=== PATIENT | female | born 1940 | race Caucasian/White ===

== ENCOUNTER 2023-11-22 06:07 | Outpatient (RCR) | payer MEDICARE, OTHER, SELFPAY | END 2023-11-22 23:59 | disposition home or self-care (01) | LOC: ROT 06:07 | PROVIDERS: ATTENDING PHYSICIAN Orthopaedic Surgery; FAMILY PHYSICIAN Family Medicine | DX: M79.642 Pain in left hand (principal); Z73.6 Limitation of activities due to disability | CPT/HCPCS: 97166; 97535 ==

== ENCOUNTER 2023-12-07 11:16 | Outpatient (RCR) | payer MEDICARE, OTHER, SELFPAY | END 2023-12-07 14:51 | disposition home or self-care (01) | LOC: ROT 11:16 | PROVIDERS: ATTENDING PHYSICIAN Orthopaedic Surgery; FAMILY PHYSICIAN Family Medicine | DX: M79.642 Pain in left hand (principal); Z73.6 Limitation of activities due to disability | CPT/HCPCS: 97018; 97110; 97140 ==

== ENCOUNTER → 2023-12-21 15:02 | Outpatient (REF) | payer MEDICARE, OTHER, SELFPAY | LOC: EMG 15:02 | PROVIDERS: ATTENDING PHYSICIAN Orthopaedic Surgery Hand Surgery; FAMILY PHYSICIAN Family Medicine | DX: M79.642 Pain in left hand (principal); G54.0 Brachial plexus disorders | CPT/HCPCS: 95886; 95911 ==

== ENCOUNTER 2024-08-22 15:42 | Emergency (ER) | payer MEDICARE, OTHER, SELFPAY ==
--- NOTE | 2024-08-22 16:18 | DOWNTIME ---
There was a [employer] Downtime on 08/22/2024 from 1230 to 08/22/2024 at 1550. Downtime documentation of patient's care, including medication administrations, has been reconciled in the electronic record per guidelines. Refer to the
patient's paper chart under the miscellaneous tab to see printed paper medication records and downtime forms.
--- NOTE | 2024-08-22 16:37 | ED.GENMED ---
History of Present Illness
General
Chief Complaint: Fall
Source: patient
Time Seen by Provider: 08/22/24 15:58
History of Present Illness
History of Present Illness:
83-year-old female with past medical history of hyperlipidemia presenting to the ER for evaluation after an accidental trip and fall 2 days ago where patient states she was walking in the bathroom and stumbled over a floor rug striking the tile on
the wall. Patient had a contusion to the right forehead and over the last 2 days the bruising seems to have started to go down towards the right orbit which concerned the patient and family. Patient states she feels fine otherwise, no LOC, no
vomiting, no visual changes, denies any use of anticoagulants.
Past History
Past History
ED Past Medical History: GERD, HTN, Hypercholesterolemia and Hypothyroidism
ED Past Surgical History: Gynecological, Orthopedic and Tonsilectomy
Social History
Tobacco: Non-smoker
Alcohol: None
Drug: None
Personal:
Living: with family
Review of Systems
Review of Systems
All Other Systems: ROS reviewed and negative except as documented in HPI and ROS
Phy Exam
Physical Exam
Physical Exam:
GENERAL: Alert , in no apparent distress
EYE: conjunctiva clear, pupils 4 mm bilateral, EOMI
Head: Right frontotemporal bone ecchymosis extending into the right inferior orbit
NECK: Supple, no nystagmus
ENT: mmm.
LUNGS: no acute respiratory distress
NEUROLOGICAL: Alert and oriented, ambulated with steady gait
SKIN: Warm and dry, skin intact.
MUSCULOSKELETAL: well perfused.
PSYCH: Normal and appropriate interaction.
Scores
Heart Failure Risk
Heart Failure Risk Score: Not Applicable
Heart Score for Chest Pain Patients
STEMI patient?: Not applicable
Withdrawal Assessment of Alcohol
Withdrawal Assessment Completed?: Not applicable
Course
Orders/Labs/Results
Orders:
Orders
08/22/[address] Facial Bones W/o Iv Contras Routine
CT Head W/o Iv Contrast Routine
Reason For Exam: FALL
MDM/Problems Addressed
Differential Diagnosis Includes:
Contusion, concussion, intracranial bleeding, facial fracture
MDM/Problems Addressed:
83-year-old female presenting to the ER for evaluation after an accidental trip and fall resulted in contusion/ecchymosis to the right orbit/frontotemporal bone. No LOC or vomiting. Family concerned due to the increased amount of ecchymosis. CT
of the head and facial bones ordered. Disposition pending.
*Radiology
Radiology exam reviewed: radiology read reviewed
*Pulse Oximetry
Patient hypoxic: no
*Critical Care Note
Total Time (30-74mins, 75-104mins- exclusive of procedures): Not Applicable
Patient Management
Escalation/DeEscalation of care consider admission/obs:
CT scans without any acute pathologies. Patient stable for discharge home. Aware of return precautions.
ED Attending Note
-
Portions of this chart may have been created with voice recognition software.� Occasional wrong word or��sound alike� substitutions may have occurred due to the inherent limitations of voice recognition software.
Discharge Plan
Departure
Patient Disposition: Home (Routine Discharge)
Date of Disposition: 08/22/24
Time of Disposition: 17:26
Patient with high blood pressure during this ER visit?: No
Discharge Problem:
Accidental fall, Contusion of forehead
Instructions: Contusion (DC)
Prescriptions:
No Action
losartan 50 MG tablet
50 mg PO DAILY
cetirizine 10 MG tablet
10 mg PO DAILY
meloxicam [Mobic] 15 MG tablet
15 mg PO DAILY
levothyroxine 25 MCG tablet
25 mcg PO DAILY
omeprazole 20 MG capsule,delayed release(DR/EC)
20 mg PO DAILY
dextroamphetamine-amphetamine [Adderall XR] 10 MG capsule,extended release 24hr
10 mg PO TID
escitalopram oxalate 10 MG tablet
10 mg PO DAILY
cyclosporine [Restasis] 10 DROPS dropperette
1 drp BOTH EYES BID
rosuvastatin 10 MG tablet
10 mg PO DAILY
mirabegron [Myrbetriq] 25 MG tablet extended release 24 hr
25 mg PO DAILY
doxycycline hyclate 100 MG capsule
100 mg PO Q12 10 Days Qty: 20 0RF
doxycycline hyclate 100 MG tablet
100 mg PO BID Qty: 14 0RF
Referrals:
UNKNOWN - PT DOES,NOT KNOW [Family Provider]
Interventions
Interventions:
*Nursing Disposition Last Done: 08/22/24 17:46
ED-Musculoskeletal Assessment Last Done: 08/22/24 16:39
ED- Neurological Assessment Last Done: 08/22/24 16:39
ED-Skin Assessment Last Done: 08/22/24 16:39
Discharge Date and Time
Discharge Date/Time: 08/22/24 17:46
Print Language: BELARUSIAN
== END 2024-08-22 17:46 | disposition home or self-care (01) ==
LOC: EMR 15:42
PROVIDERS: EMERGENCY PHYSICIAN Student in an Organized Health Care Education/Training Program
DX: S00.83XA Contusion of other part of head, initial encounter (principal); W01.198A Fall on same level from slipping, tripping and stumbling with subsequent striking against other object, initial encounter; E03.9 Hypothyroidism, unspecified; E78.00 Pure hypercholesterolemia, unspecified; I10 Essential (primary) hypertension
CPT/HCPCS: 99284; 70450; 70486

== ENCOUNTER → 2024-11-15 16:03 | Outpatient (REF) | payer MEDICARE, OTHER, SELFPAY | LOC: RAD 16:03 | PROVIDERS: ATTENDING PHYSICIAN Family Medicine; FAMILY PHYSICIAN Family Medicine | DX: R22.31 Localized swelling, mass and lump, right upper limb (principal) | CPT/HCPCS: 93971 ==